=== PATIENT | male | born 1990 | race Two or more races ===

== ENCOUNTER → 2016-10-05 | Outpatient (CLI) | payer OTHER | END | disposition home or self-care (01) | LOC: LAB 16:25 | PROVIDERS: ATTEND General Practice | DX: Z77.21 Contact with and (suspected) exposure to potentially hazardous body fluids (principal); Y92.148 Other place in prison as the place of occurrence of the external cause; Y99.0 Civilian activity done for income or pay | CPT/HCPCS: 36415; 86703; 86706; 86803; 87340 ==

== ENCOUNTER 2017-08-06 20:57 | Emergency (ER) | payer OTHER ==
[~2017-08-06] VITALS: Ht 182.9 cm; Wt 132.9 kg
[2017-08-06 22:58] VITALS: BP 134/76
[2017-08-08 11:54] LABS: Hepatitis B Surface Antibody Positive
== END 2017-08-06 23:07 | disposition home or self-care (01) ==
LOC: ER 20:57
DX: M25.522 Pain in left elbow (principal); Z77.21 Contact with and (suspected) exposure to potentially hazardous body fluids
CPT/HCPCS: 36415; 73080; 86703; 86706; 86803; 87340